=== PATIENT | female | born 1950 | race African-American/Black ===

== ENCOUNTER 2017-11-23 10:43 | Outpatient (CLI) | payer MEDICARE ==
--- NOTE | 2017-11-24 12:03 | MMO ---
BILATERAL SCREENING MAMMOGRAM: History: Screening. Comparison: 2015, 2013 FINDINGS: This study is interpreted with the assistance of computer aided detection. No suspicious mass, architectural distortion, or suspicious calcifications. Benign calcifications lef t breast. IMPRESSION: BIRADS category 2 - benign findings. Continued screening recommended. POS: [id number]
== END 2017-11-23 10:44 | disposition home or self-care (01) ==
LOC: SCSMAMMO 10:43
PROVIDERS: ATTEND Family Medicine
DX: Z12.31 Encounter for screening mammogram for malignant neoplasm of breast (principal)
CPT/HCPCS: 77067

== ENCOUNTER 2018-12-29 13:46 | Outpatient (CLI) | payer MEDICARE ==
--- NOTE | 2018-12-29 15:33 | MMO ---
BILATERAL SCREENING MAMMOGRAM: COMPARISON: 11/23/2017, 10/29/2016, 12/10/2015, and 08/21/2014. HISTORY: A 68-year-old female. Routine screening mammography. TECHNIQUE: CC and MLO views of both breasts are submitted for interpretation. This patient's mammogram is revie wed with the assistance of computer-aided detection. FINDINGS: Breasts are composed of scattered fibroglandular tissue. Bilaterally, no suspicious dominant mass, a rchitectural distortion, or suspicious calcification. There are benign-appearing calcifications in t he right breast. Stable calcification and clip in the left breast. IMPRESSION: BI-RADS category 2. RECOMMENDATION: Annual mammogram. BIRADS 2: Benign Finding(s) Routine annual screening mammography (for women over age 40) POS: [facility]
== END 2018-12-29 13:47 | disposition home or self-care (01) ==
LOC: SCSMAMMO 13:46
PROVIDERS: ATTEND Family Medicine
DX: Z12.31 Encounter for screening mammogram for malignant neoplasm of breast (principal)
CPT/HCPCS: 77067

== ENCOUNTER 2021-08-01 13:52 | Outpatient (CLI) | payer MEDICARE ==
[2021-08-01 16:12] LABS: #Eosinphils 0.2 10x3/uL (0.0-0.5); #Monocytes 0.6 10x3/uL (0.0-1.1); #Neutrophils 3.4 10x3/uL (1.5-8.4); %Basophils 0.7 % (0.0-2.0); %Eosinophils 2.7 % (0.0-6.0); %Lymphocytes 29.1 % (18.0-47.0); %Monocytes 10.3 % (0.0-10.0); %Neutrophils 56.9 % (40.0-75.0); Hemoglobin 11.3 g/dL (12.0-15.5); Mean Corpuscular HGB CONC 34.3 g/dL (32.0-36.0); Mean Corpuscular Hemoglobin 29.5 pg (27.0-33.0); Mean Corpuscular Volume 85.9 fl (81.6-98.3); Mean Platelet Volume 9.7 fl (7.4-10.4); Platelet Count 260 10x3/uL (150-450); RBC Distribution Width 14.1 % (11.5-14.5); Red Blood Cell (RBC) Count 3.83 10x6/uL (3.90-5.03)
[2021-08-01 16:21] LABS: Anion Gap 12 mmol/L (10-20); BUN (Urea Nitrogen) 28 mg/dL (9.8-20.1); Calc. Creatinine Clearance 0 mL/min (70-130); Calcium 10.2 mg/dL (7.8-10.44); Carbon Dioxide 27 mmol/L (23-31); Chloride 102 mmol/L (98-107); Glucose 106 mg/dL (83-110); Potassium 3.9 mmol/L (3.5-5.1); Sodium 137 mmol/L (136-145)
[2021-08-03 00:17] LABS: SARS-CoV-2 PCR by NAA Not Detected (NotDetected)
== END 2021-08-01 13:53 | disposition home or self-care (01) ==
LOC: LABBT 13:52
PROVIDERS: ATTEND Surgery
DX: Z01.818 Encounter for other preprocedural examination (principal); K43.9 Ventral hernia without obstruction or gangrene; Z20.822 Contact with and (suspected) exposure to COVID-19
CPT/HCPCS: 80048; 85025; 93005; U0003; U0005; 93010

== ENCOUNTER 2021-08-06 10:53 | Day surgery (SDC) | payer MEDICARE ==
[2021-08-05 11:08] VITALS: BMI 30.1
[2021-08-06] MEDS ORDERED: Bupivacaine 0.25% HCL 30 ML VIAL ONE (11:46)
[2021-08-06] MEDS ORDERED: Fentanyl 100 MCG/2 ML VIAL ONE ×2 (11:51→13:28)
[2021-08-06] MEDS ORDERED: Lidocaine 1% w/Epinephrine 1:100K 20 ML VIAL ONE (11:59)
[2021-08-06] MEDS ORDERED: PHENYLEPHRINE-NS 100 MCG/ML 10 ML SYRINGE ONE (12:07)
[2021-08-06] MEDS ORDERED: Dexamethasone 20 MG/5 ML VIAL ONE (12:07)
[2021-08-06] MEDS ORDERED: Ondansetron PF 4 MG/2 ML Vial ONE (12:07)
[2021-08-06] MEDS ORDERED: Ketorolac Tromethamine 30 MG/ML VIAL ONE (12:07)
[2021-08-06] MEDS ORDERED: ePHEDrine 50 MG/ML VIAL ONE (12:07)
[2021-08-06] MEDS ORDERED: PROPOFOL 200 MG/20 ML VIAL ONE (12:07)
[2021-08-06] MEDS ORDERED: Rocuronium Bromide 10 MG/ML (10ML VIAL) ONE (12:07)
[2021-08-06] MEDS ORDERED: Glycopyrrolate 0.2 MG/ML 5 ML SYRINGE ONE (12:07)
== END 2021-08-06 15:22 | disposition home or self-care (01) ==
LOC: SDC 10:53
PROVIDERS: ATTEND Surgery
PROC: 0WUF4JZ Supplement Abdominal Wall with Synthetic Substitute, Percutaneous Endoscopic Approach (ICD-10-PCS; principal; 2021-08-06)
DX: K43.2 Incisional hernia without obstruction or gangrene (principal); I10 Essential (primary) hypertension; K21.9 Gastro-esophageal reflux disease without esophagitis; E78.5 Hyperlipidemia, unspecified; M15.9 Polyosteoarthritis, unspecified; M10.9 Gout, unspecified; Z79.899 Other long term (current) drug therapy; Z91.041 Radiographic dye allergy status
CPT/HCPCS: 49654; C1781; J0690; J1100; J1885; J2405; J2704; J3010; J3490; S0020